=== PATIENT | female | born 1985 | race Caucasian/White ===

== ENCOUNTER 2021-05-25 15:06 | Outpatient (CLI) | payer OTHER, SELFPAY ==
--- NOTE | ~2021-05-25 | US_ITS ---
EXAMINATION: US OB ADD MULTI GESTATION DATE: 09/16/16 13:35:00 INDICATION: Spotting complicating first trimester . TECHNIQUE: Real-time pelvic ultrasound utilizing both a transvaginal and transabdominal probe was pe rformed. The interpreting radiologist was not present for the study. COMPARISON: None. FINDINGS: The uterus measures 13.5 x 10.8 x 6.6 cm. There are 2 separate intrauterine gestational sacs separate d by a thin, nearly indiscernible membrane consistent with a monochorionic, diamniotic . A living fetus is identified in each gestational sac. The crown rump length for fetus A in the sac positioned on maternal right measures 5.4 cm, which karri elates with an estimated gestational age of 12 weeks and 0 days. heart motion is identified victoriano suring 150 beats per minute (bpm) by M-mode Doppler. The crown rump length for fetus A in the sac positioned on maternal left measures 5.5 cm, which corre lates with an estimated gestational age of 12 weeks and 0 days. heart motion is identified beth uring 167 beats per minute (bpm) by M-mode Doppler. The right ovary measures 3.2 x 2.2 x 1.6 cm. The left ovary measures 2.7 x 2.1 x 1.5 cm. Vascular rissa w identified in both ovaries on color Doppler. There is no free fluid in the pelvis. IMPRESSION: 1. Monochorionic, diamnionic with 2 living fetuses. 2. Gestational age by ultrasound of 12 weeks 0 day(s) +/- 1 week and 1 day with ultrasound estimated date of delivery (ELIEL) of 12/07/2021. Reviewed, dictated and finalized at location H. IFIED NOVELL ADMINISTRATOR IMPRESSION: 1. Monochorionic, diamnionic with 2 living fetuses. 2. Gestational age by ultrasound of 12 weeks 0 day(s) +/- 1 week and 1 day wit h ultrasound estimated date of delivery (ELIEL) of 12/07/2021.
== END 2021-05-25 15:07 | disposition home or self-care (01) ==
LOC: ANHIMG 15:12
PROVIDERS: PCP Nurse Practitioner Family; Visit Provider Obstetrics & Gynecology
DX: O30.001 Twin pregnancy, unspecified number of placenta and unspecified number of amniotic sacs, first trimester (principal); Z3A.12 12 weeks gestation of pregnancy
CPT/HCPCS: 76801

== ENCOUNTER 2021-11-05 07:11 | Outpatient (RCR) | payer OTHER, SELFPAY ==
[2021-10-21 11:14] VITALS: BP 124/68; PULSE 62
[2021-10-25 18:03] VITALS: BP 110/62; PULSE 86
[2021-10-28 14:02] VITALS: BP 122/61; PULSE 84
[2021-11-02 11:07] VITALS: BP 122/61; PULSE 83
[2021-11-05 07:51] VITALS: BP 119/69; PULSE 72
== END 2021-11-12 10:21 | disposition home or self-care (01) ==
LOC: ANHOBOP 07:11
PROVIDERS: PCP Nurse Practitioner Family; Visit Provider Obstetrics & Gynecology Gynecology
DX: O24.419 Gestational diabetes mellitus in pregnancy, unspecified control (principal); O30.009 Twin pregnancy, unspecified number of placenta and unspecified number of amniotic sacs, unspecified trimester; Z3A.33 33 weeks gestation of pregnancy; Z3A.34 34 weeks gestation of pregnancy; Z3A.35 35 weeks gestation of pregnancy
CPT/HCPCS: 59025

== ENCOUNTER 2021-11-07 14:45 | Inpatient (IN) | payer OTHER, SELFPAY ==
[2021-11-07] VITALS (28 sets, daily range): BP systolic 78–133; BP diastolic 39–96; PULSE 52–105; RESP 14–18; TEMP 36.2–37.1; O2SAT 91–100; BMI 46.0
--- NOTE | 2021-11-07 16:01 | WPDOBADMIT ---
Obstetrics - Admit Note Admission Note: record reviewed. No pertinent additions to the history and/or any subsequent changes in the physical findings that are not consistent with the expected course of the were found. 36yo @ 35.4wks (ELIEL 12/08/21) w/ di-di twins who presented w/ SROM of twin A @ 1330 and presented at 9cm. - A2GDM on insulin Additions to the history and/or subsequent changes in the physical findings follow. None.
--- NOTE | 2021-11-07 16:11 | PM.OBPRVD ---
OB - Delivery Note Procedure Delivery date: 11/07/21 Events: Gestational Diabetes and Other ( labor; Di-Di Twins) Delivery monitor: External FHT and External Uterine Route of delivery: Laceration Description: None Specimen: Yes (placenta) Quantitative Blood Loss (ml): 150 Anesthesia type: None Disposition: Floor Baby Date of : 11/07/21 Time of : 15:24 Weeks of gestation at delivery: 35 (.4) gender: Male Weight (pounds): 5 Weight (ounces): 14 presentation: vertex position: Right Occiput Anterior Placenta delivery description: Expressed Cord Vessel Description: 3 Vessels score one minute: 9 score five minutes: 9 Twins 2: Date of : 11/07/21 Time of : 15:44 Weeks of gestation at delivery: 35 (.4) gender: Female Weight (pounds): 6 Weight (ounces): 2 presentation: compound (left arm presenting above head) position: Right Occiput Anterior Placental delivery description: Expressed Cord Vessel Description: 3 Vessels score one minute: 8 score five minutes: 9 Narrative: Wallace presented to labor delivery with rupture of membranes at 1:30 p.m.. She presented delilah and in significant pain. She was found to be 9 cm dilated. She was taken to the operating room for double setup and aware of the possibility of need for stat if anything were to happen with baby B. She pushed twice and delivered twin A, male, without any complications. He had spontaneous cry and the umbilical cord was clamped and cut. He was handed off to the awaiting pediatric team in stable condition. Ultrasound was performed and confirmed that twin B remained in the cephalic presentation. We awaited until spontaneous contractions resumed and she began pushing. We intermittently performed bedside ultrasound to confirm twin B remained cephalic. Once the head was lower, amniotomy was performed with clear fluid noted. The hand was then palpated above the head, however heart tones remained normal. We proceeded to have her push approximately 3 more contractions and she easily delivered the 's head and body without complications, female. The umbilical cord was clamped and cut and she was handed off to the awaiting pediatric team where spontaneous cry was heard. Pitocin infusion was then started, and with gentle downward traction on the cord, placenta B delivered 1st followed by placenta A. Uterine tone was noted to be firm with minimal bleeding. Segments of the cord for cord gases and typing were then collected for each baby. Sponge, lap, instrument, and needle counts were correct at the end the procedure. Mom and babies remained in a stable condition and mom was taken to a labor suite, the baby's were taken to the NICU. [facility] Delivery Billing Delivery Delivery: Delivery Charge
[2021-11-07 16:20] LABS: Basophils Absolute Auto 0.1 K/mm3 (0.0-0.1); Basophils Percent Auto 0.4 % (0.2-1.2); Eosinophils Absolute Auto 0.1 K/mm3 (0-0.3); Eosinophils Percent Auto 0.4 % (0-4.4); Hematocrit 36.6 % (37.0-47.0); Hemoglobin 11.7 g/dL (12.0-15.0); Immature Granulocyte Absolute 0.38 K/mm3 (0.00-0.031); Immature Granulocyte Percent A 3.2 % (0-0.5); Lymphocytes Absolute Auto 2.24 K/mm3 (0.9-3.2); Mean Corpuscular Hemoglobin 27.5 pg (26-34); Mean Corpuscular Volume 86.1 fl (80-100); Mean Platelet Volume 10.7 fl (7.4-10.4); Monocytes Absolute Auto 0.8 K/mm3 (0.1-0.6); Monocytes Percent Auto 6.9 % (2.6-8.5); Neutrophils Absolute Auto 8.2 K/mm3 (1.3-6.7); Neutrophils Percent Auto 70.1 % (45.5-73.1); Platelet Count Result 229 k/mm3 (150-375); Red Blood Count 4.25 M/mm3 (4.2-5.4); Red Cell Distribution Width 15.1 % (11.5-14.5); White Blood Count 11.8 K/mm3 (4.5-10.0)
[2021-11-07] MEDS: OXYTOCIN 30 UNITS/NS 500 ML 30 UNITS/500 ML BAG 125 UNITS IV CONT ×2 (16:43→17:58)
[2021-11-07] MEDS: LACTATED RINGERS 1,000 ML 125 ML IV CONT ×2 (16:44→18:01)
--- NOTE | 2021-11-07 16:58 | LDADM ---
This patient, Wallace Borja, was admitted to Labor/Delivery/Recovery 102 on 11/07/21 at 14:45. Plans for labor, pain management and were discussed with patient. Patient/family oriented to hospital policies and general routines including ID bracelet, bed and alarms, visiting hours, pain management, procedures, bathroom and other care routines, personal items, smoking policy, room service/diet and guest tray routines, security routines, and visiting hours. Patient/Family are encouraged to report perceived risks to care and to ask questions if they do not understand what they are told or what they should do. See OBIX for further documentation.
[2021-11-07] MEDS: IBUPROFEN 600 MG TABLET PO (17:12)
[2021-11-07] MEDS: miSOPROStol 200 MCG TABLET 800 MCG RECTAL (17:20)
[2021-11-07] MEDS: fentaNYL CITRATE INJ (*CRX) 100 MCG/2 ML VIAL IV PUSH (17:22)
[2021-11-07] MEDS: METHYLERGONOVINE MALEATE 0.2 MG/ML VIAL IM ×2 (17:28→19:51)
--- NOTE | 2021-11-07 17:40 | WPDHPUPDATE1 ---
History and Physical Update Update Date/Time: 11/07/21 17:40 History and Physical has been reviewed, including an updated exam of the patient. There are NO changes in the patient's condition. Risks, benefits, and alternatives have been discussed and questions answered. Patient agrees to proceed with suction D&C due to PPH of 2062cc; labs pending.
[2021-11-07 17:48] LABS: Basophils Absolute Auto 0.1 K/mm3 (0.0-0.1); Basophils Percent Auto 0.5 % (0.2-1.2); Eosinophils Percent Auto 0.2 % (0-4.4); Hematocrit 34.6 % (37.0-47.0); Immature Granulocyte Absolute 0.35 K/mm3 (0.00-0.031); Lymphocytes Absolute Auto 1.51 K/mm3 (0.9-3.2); Lymphocytes Percent Auto 8.8 % (18.3-44.2); Mean Corpuscular HGB Conc 31.8 g/dl (32-36); Mean Corpuscular Hemoglobin 27.7 pg (26-34); Mean Corpuscular Volume 87.2 fl (80-100); Mean Platelet Volume 10.7 fl (7.4-10.4); Monocytes Absolute Auto 0.9 K/mm3 (0.1-0.6); Monocytes Percent Auto 5.4 % (2.6-8.5); Neutrophils Absolute Auto 14.3 K/mm3 (1.3-6.7); Neutrophils Percent Auto 83.1 % (45.5-73.1); Platelet Count Result 208 k/mm3 (150-375); Red Blood Count 3.97 M/mm3 (4.2-5.4); Red Cell Distribution Width 14.9 % (11.5-14.5); White Blood Count 17.2 K/mm3 (4.5-10.0)
--- NOTE | 2021-11-07 17:49 | WPDANESEPP ---
Anes - Eval Pre Procedure Procedure: suction d & c Date/Time: 11/07/21 17:49 Surgeon: Emmanuelle Burch MD Preop Diagnosis: retained placenta Pre Op Diagnosis: LABOR Patient Data Age: 36 Gender: F Height: 1.69 m Weight: 131.5 kg Last Vital Signs Pulse 66 11/07/21 17:46 BP 113/74 11/07/21 17:46 Pulse Ox 100 11/07/21 17:44 O2 Del Method Room Air 11/07/21 16:53 Allergies Allergy/AdvReac Type Severity Reaction Status Date / Time No Known Allergies Allergy Unverified 01/16/19 05:25 Home Medications Medication Instructions Recorded Confirmed Type aspirin 81 mg capsule 81 mg PO DAILY 10/28/21 11/07/21 History calcium carbonate 333 mg-magnesium 3 tablet PO TID 10/28/21 11/07/21 History oxide 133 mg-zinc sulf 5 mg tablet ergocalciferol (vitamin D2) 1,250 50,000 unit PO 2XW 10/28/21 11/07/21 History mcg (50,000 unit) capsule (Vitamin D2) ferrous sulfate 325 mg (65 mg 325 mg PO BID 10/28/21 11/07/21 History iron) tablet vit no.95-ferrous 1 tablet PO DAILY 10/28/21 11/07/21 History fumarate 28 mg-folic acid 800 mcg tablet () Laboratory Tests 11/07/21 11/07/21 11/07/21 16:12 16:12 16:12 WBC 11.8 K/mm3 H K/mm3 (4.5-10.0) RBC 4.25 M/mm3 M/mm3 (4.2-5.4) Hgb 11.7 g/dL L g/dL (12.0-15.0) Hct 36.6 % L % (37.0-47.0) MCV 86.1 fl fl (80-100) MCH 27.5 pg pg (26-34) MCHC 32.0 g/dl g/dl (32-36) RDW 15.1 % H % (11.5-14.5) Plt Count 229 k/mm3 k/mm3 (150-375) MPV 10.7 fl H fl (7.4-10.4) Immature Gran % (Auto) 3.2 % H % (0-0.5) Neut % (Auto) 70.1 % % (45.5-73.1) Lymph % (Auto) 19.0 % % (18.3-44.2) [place] % (Auto) 6.9 % % (2.6-8.5) Eos % (Auto) 0.4 % % (0-4.4) Baso % (Auto) 0.4 % % (0.2-1.2) Lymph # (Auto) 2.24 K/mm3 K/mm3 (0.9-3.2) [place] # (Auto) 0.8 K/mm3 H K/mm3 (0.1-0.6) Eos # (Auto) 0.1 K/mm3 K/mm3 (0-0.3) Baso # (Auto) 0.1 K/mm3 K/mm3 (0.0-0.1) Abs Immat Gran (auto) 0.38 K/mm3 H K/mm3 (0.00-0.031) Absolute Neuts (auto) 8.2 K/mm3 H K/mm3 (1.3-6.7) Absolute Nucleated RBC 0.0 K/mm3 K/mm3 (0.0-0.012) Nucleated RBC % 0.0 % % (0.0-0.2) PT INR APTT Fibrinogen D-Dimer RPR Pending Blood Type AB Positive Antibody Screen Negative 11/07/21 11/07/21 17:42 17:42 WBC Pending RBC Pending Hgb Pending Hct Pending MCV Pending MCH Pending MCHC Pending RDW Pending Plt Count Pending MPV Pending Immature Gran % (Auto) Pending Neut % (Auto) Pending Lymph % (Auto) Pending [place] % (Auto) Pending Eos % (Auto) Pending Baso % (Auto) Pending Lymph # (Auto) Pending [place] # (Auto) Pending Eos # (Auto) Pending Baso # (Auto) Pending Abs Immat Gran (auto) Pending Absolute Neuts (auto) Pending Absolute Nucleated RBC Pending Nucleated RBC % Pending PT Pending INR Pending APTT Pending Fibrinogen Pending D-Dimer Pending RPR Blood Type Antibody Screen Patient hx anesthesia problems: none Family hx anesthesia problems: none Results Review: All pre-operative results and documents have been reviewed as part of the pre-operative evaluation. [facility] Past Medical History Medical History (Updated 11/07/21 @ 17:51 by Siria Awad CRNA) Morbid obesity with BMI of 45.0-49.9, adult Social History Social History Smoking status: Never smoker Second hand tobacco smoke exposure: No Substance use: never Spiritual care c
[2021-11-07] MEDS: CARBOPROST TROMETHAMINE 250 MCG/ML AMPUL IM (18:04)
[2021-11-07] MEDS: ceFAZolin SODIUM 1 GM VIAL 2 GM IV PUSH (18:18)
--- NOTE | 2021-11-07 18:26 | P.PNAN_ITS ---
Anes - Eval Final PreProcedure Day of Procedure 11/07/21 18:26 Patient weight: morbidly obese Heart: regular rate and rhythm Lungs: clear to auscultation Airway: Mallampati scale class II Neurological: alert and oriented Emergent: yes Anesthetic plan: proceed Anesthesia type and monitoring: general (possible GA with ETT) GIVS and standard monitoring Results Review: All pre-operative results and documents have been reviewed as part of the pre- operative evaluation. Informed Consent: The patient's anesthetic plan and its attendant risks and benefits were discussed with the patient/family/POA. Questions were solicited and answers provided to the satisfaction of the patient/family/POA.
[2021-11-07 18:27] LABS: INR 1.1; Prothrombin Time 13.6 Seconds (11.1-14.7)
[2021-11-07 18:28] LABS: Fibrinogen 471 mg/dl (215-510); Partial Thromboplastin Time 26.2 SECONDS (22.3-36.8)
[2021-11-07 18:31] LABS: D Dimer 2.65 ug/mL (<0.48)
[2021-11-07] MEDS: LACTATED RINGERS 1,000 ML 30 ML IV CONT ×2 (19:12)
--- NOTE | 2021-11-07 19:16 | PM.OP ---
Procedure Note - Brief Procedure Note - Brief Date of procedure: 11/07/21 Pre-op diagnosis: hemorrhage Post-op diagnosis: Other (Same + retained fragment of placenta) Procedure performed: Suction dilation and curettage Description of procedure: Cornell was s/p of di-di twins at 1524 and 1544 with minimal bleeding. At 1717 I received a phone call that there was excessive bleeding; EBL at that point was 1600cc. Misoprostol 800mcg was instructed to be placed rectally and to drain her bladder (150cc was drained). Labs were collected and sent. She was also given Fentanyl 100mcg. I arrived to examine the patient and uterine atony was noted and 2 large clots were removed (size of softballs). Anesthesia was notified of the PPH. We then gave Methergine. She continued to bleed if fundal massage stopped. I then proceeded to have the OR team called in for suction D&C. We continued to give Hemabate and TXA and continued fundal massage until she was ready for the OR. EBL was approximately 2,200cc at this point. She was taken to the operating room where she was given sedation. She was then prepped and draped in the usual sterile fashion in the dorsal lithotomy position with her legs in low Kendrick stirrups. A time-out was performed and we did administer 2 g Ancef. A bivalve speculum was placed in the vagina where a large amount of clots were noted and removed. The anterior lip of the cervix was grasped with a ring forceps and an 8 suction curettage was placed at the fundus and suction was applied. Some clots and possible retained products were removed. Two more swipes were performed with only blood clots removed. The cervix continued to remain open. I decided to proceed with using a size 10 suction curettage. A couple passes were made and more clots were removed. I performed a bimanual massage where a small fragment of what appeared to be a piece of placenta was removed from the posterior wall. Ultrasound was performed and an area on the posterior wall appeared to look like there was still possibly a retained fragment. Another bimanual massage with uterine sweep was performed and an additional piece of possible placenta was removed. A sharp curettage was performed with good uterine cry. The lining appeared thin on bedside US and the bleeding was minimal. She was given an additional dose of Hemabate at 1854. She was noted to have a small eliana-ureteral laceration that had slight bleeding (after multiple vaginal exams/vaginal prep) so a U stitch using 3-0 Vicryl was placed and hemostasis was noted. Her uterus continued to remain firm and minimal vaginal bleeding was noted. Sponge, lap, instrument, and needle counts were correct at the end of the procedure. She was awoke from anesthesia and taken to recovery in a stable condition. She will get another dose of Methergine as it has been 2 hours and we will continue Pitocin at 125ml per hour and will remain on L&D overnight. She will have labs sent at 2100 and UOP will also be closely monitored. Anesthesia: MAC Surgeon: Emmanuelle Burch MD Estimated blood loss (mL): 300 (for procedure) Urine output (mL): 100 Drains: No Packing: No Pathology: Yes Complications: No immediate complications Condition: Stable Disposition: Floor (L&D) Findings: EBL prior to start of procedure was ~2200cc; uterus ~20wk size to umbilicus but atony noted when fundal massage stopped, cervix dilated; multiple clots evacuated; small piece of possible placenta removed from posterior/fundal wall; small eliana-uretheral laceration noted and U stitch placed with 3-0 Vicryl; good hemostasis and end of case and uterus firm.
[2021-11-07] MEDS: BENZOCAINE 20% AER SPR (*SP) 56 GM CAN 1 SPRAY TOPICAL (21:00)
[2021-11-07] MEDS: LANOLIN (LANSINOH) 7.5 GM CREAM 1 APPLIC TOPICAL (21:00)
[2021-11-07] MEDS: WITCH HAZEL 40 PADS 1 PAD TOPICAL (21:00)
[2021-11-07 21:37] LABS: Hematocrit 33.7 % (37.0-47.0); Hemoglobin 10.7 g/dL (12.0-15.0); Mean Corpuscular HGB Conc 31.8 g/dl (32-36); Mean Corpuscular Hemoglobin 27.4 pg (26-34); Mean Corpuscular Volume 86.2 fl (80-100); Platelet Count Result 169 k/mm3 (150-375); Red Blood Count 3.91 M/mm3 (4.2-5.4); Red Cell Distribution Width 14.8 % (11.5-14.5); White Blood Count 17.6 K/mm3 (4.5-10.0)
[2021-11-07] MEDS: LOPERAMIDE HCL 2 MG CAPSULE 4 MG PO (22:29)
[2021-11-08] VITALS (11 sets, daily range): BP systolic 105–136; BP diastolic 49–64; PULSE 62–86; RESP 16–18; TEMP 36.3–37.2; O2SAT 97–98
[2021-11-08] MEDS: IBUPROFEN 600 MG TABLET PO ×2 (05:19→12:07)
[2021-11-08 05:31] LABS: Hematocrit 28.2 % (37.0-47.0); Hemoglobin 9.4 g/dL (12.0-15.0)
--- NOTE | 2021-11-08 09:37 | P.PNOB_ITS ---
OB - PN: Subj Subjective Date/time seen: 11/08/21 09:37 Patient comments: no complaints and pain well controlled baby status: doing well OB - PN: Obj Data Labs CBC & Chem 7: 11/08/21 05:24 Labs: Laboratory Results - last 24 hr 11/07/21 11/07/21 11/07/21 16:12 16:12 17:42 WBC 11.8 H 17.2 H RBC 4.25 3.97 L Hgb 11.7 L 11.0 L Hct 36.6 L 34.6 L MCV 86.1 87.2 MCH 27.5 27.7 MCHC 32.0 31.8 L RDW 15.1 H 14.9 H Plt Count 229 208 MPV 10.7 H 10.7 H Immature Gran % (Auto) 3.2 H 2.0 H Neut % (Auto) 70.1 83.1 H Lymph % (Auto) 19.0 8.8 L [place] % (Auto) 6.9 5.4 Eos % (Auto) 0.4 0.2 Baso % (Auto) 0.4 0.5 Lymph # (Auto) 2.24 1.51 [place] # (Auto) 0.8 H 0.9 H Eos # (Auto) 0.1 0.0 Baso # (Auto) 0.1 0.1 Abs Immat Gran (auto) 0.38 H 0.35 H Absolute Neuts (auto) 8.2 H 14.3 H Absolute Nucleated RBC 0.0 0.0 Nucleated RBC % 0.0 0.0 PT INR APTT Fibrinogen D-Dimer Blood Type AB Positive Antibody Screen Negative 11/07/21 11/07/21 11/08/21 18:10 21:31 05:24 WBC 17.6 H RBC 3.91 L Hgb 10.7 L 9.4 L Hct 33.7 L 28.2 L MCV 86.2 MCH 27.4 MCHC 31.8 L RDW 14.8 H Plt Count 169 MPV 10.0 Immature Gran % (Auto) Neut % (Auto) Lymph % (Auto) [place] % (Auto) Eos % (Auto) Baso % (Auto) Lymph # (Auto) [place] # (Auto) Eos # (Auto) Baso # (Auto) Abs Immat Gran (auto) Absolute Neuts (auto) Absolute Nucleated RBC Nucleated RBC % PT 13.6 INR 1.1 APTT 26.2 Fibrinogen 471 D-Dimer 2.65 H Blood Type Antibody Screen OB - PN A/P Plan day: 1 Plan: routine care and other (No symptoms from hemorrhage. Plan iron.) Time Spent With Patient Time: Total time spent is greater than 50% in coordination of care (as documented) at patient's floor/unit and/or counseling patient: Exam : Bimanual exam- vagina & uterus: other (Uterus firm, nt @U)
--- NOTE | 2021-11-08 09:38 | PM.OBDSVD ---
DS: Admitting Diagnosis Discharge Date 11/09/21 Admitting Diagnosis di-di twins in labor with SROM 35 4/7 wks GDMA2 DS: Discharge Diagnosis Discharge Diagnosis (1) Twin delivered vaginally: Code(s): O30.009 - Twin , unspecified number of placenta and unspecified number of amniotic sacs, unspecified trimester Status: Acute OB - DS: Summary OB Procedures : NST and Ultrasound OB Procedures Intrapartum: Spontaneous Vag Delivery (x 2 twins) OB Procedures: : Curettage (per Dr. Burch) Peripartum Data Delivery Method: Natural Vaginal Procedures: Procedures Operation Date: 11/07/21 18:30 Actual Procedure Side Surgeon p Suction Dilatation and Curettage Not Applicable Emmanuelle Burch MD complications: uterine atony and retained placenta Status at Discharge Functional status at discharge: independent ambulation Overall status at discharge: patient is progressing back to baseline Time Spent with Patient Time attestation: Total time spent providing and/or coordinating discharge services: DS: Data Data Completed and Pending Pending studies at discharge: Pending at discharge 11/07/21 15:50 Surgical [PTH] Routine Surgical [PTH] Routine Labs on day of discharge: Labs from last 24 hours 11/08/21 11/07/21 11/07/21 05:24 21:31 18:10 WBC 17.6 H RBC 3.91 L Hgb 9.4 L 10.7 L Hct 28.2 L 33.7 L MCV 86.2 MCH 27.4 MCHC 31.8 L RDW 14.8 H Plt Count 169 MPV 10.0 Immature Gran % (Auto) Neut % (Auto) Lymph % (Auto) [place] % (Auto) Eos % (Auto) Baso % (Auto) Lymph # (Auto) [place] # (Auto) Eos # (Auto) Baso # (Auto) Abs Immat Gran (auto) Absolute Neuts (auto) Absolute Nucleated RBC Nucleated RBC % PT 13.6 INR 1.1 APTT 26.2 Fibrinogen 471 D-Dimer 2.65 H RPR Blood Type Antibody Screen 11/07/21 11/07/21 11/07/21 17:42 16:12 16:12 WBC 17.2 H RBC 3.97 L Hgb 11.0 L Hct 34.6 L MCV 87.2 MCH 27.7 MCHC 31.8 L RDW 14.9 H Plt Count 208 MPV 10.7 H Immature Gran % (Auto) 2.0 H Neut % (Auto) 83.1 H Lymph % (Auto) 8.8 L [place] % (Auto) 5.4 Eos % (Auto) 0.2 Baso % (Auto) 0.5 Lymph # (Auto) 1.51 [place] # (Auto) 0.9 H Eos # (Auto) 0.0 Baso # (Auto) 0.1 Abs Immat Gran (auto) 0.35 H Absolute Neuts (auto) 14.3 H Absolute Nucleated RBC 0.0 Nucleated RBC % 0.0 PT INR APTT Fibrinogen D-Dimer RPR Pending Blood Type AB Positive Antibody Screen Negative 11/07/21 16:12 WBC 11.8 H RBC 4.25 Hgb 11.7 L Hct 36.6 L MCV 86.1 MCH 27.5 MCHC 32.0 RDW 15.1 H Plt Count 229 MPV 10.7 H Immature Gran % (Auto) 3.2 H Neut % (Auto) 70.1 Lymph % (Auto) 19.0 [place] % (Auto) 6.9 Eos % (Auto) 0.4 Baso % (Auto) 0.4 Lymph # (Auto) 2.24 [place] # (Auto) 0.8 H Eos # (Auto) 0.1 Baso # (Auto) 0.1 Abs Immat Gran (auto) 0.38 H Absolute Neuts (auto) 8.2 H Absolute Nucleated RBC 0.0 Nucleated RBC % 0.0 PT INR APTT Fibrinogen D-Dimer RPR Blood Type Antibody Screen Discharge Plan Discharge Attending physician on discharge: Kalyn Holloway Discharging Clinician: Kalyn Holloway Anticipated Discharge Date/Time: 11/09/21 09:40 Patient Disposition: Home, Self-Care Activity: may shower and pelvic rest Diet: regular Patient Instructions: Antibiotic Form Stand Alone Forms: General Discharge Information Follow-up/Referrals: Kalyn Holloway MD [Physician] - 6 Weeks Discharge Medications: Continued ferrous sulfate 325 mg (65 mg iron) Tablet 325 mg PO BID ergocalciferol (vitamin D2) [Vitamin D2] 1,250 mcg (50,000 unit) Capsule 50,000 unit PO 2XW Rx Instructions: Takes every Monday and Wednesday PNV cmb#95-ferrous fumarate-FA [] 28 mg iron- 800 mcg Tablet 1 tablet PO DAILY
[2021-11-08 10:35] LABS: Rapid Plasma Reagin Non-Reactive (NonReactive)
[2021-11-08] MEDS: DOCUSATE SODIUM 100 MG CAPSULE PO ×2 (12:00→20:29)
[2021-11-08] MEDS: POLYSACCHARIDE IRON COMPLEX 150 MG CAPSULE PO ×3 (12:00→20:29)
[2021-11-08] MEDS: MULTIVIT/MIN/PREN/FOL AC/IRON TABLET 1 TAB PO (12:07)
--- NOTE | 2021-11-08 13:34 | WPDANLDPN2 ---
Anes-Prog Note L&D Date/Time: 11/08/21 13:34 Comfortable throughout: labor and delivery Neuro status: Neuro function grossly intact. Cardiovascular status: normal Respiratory status: normal Airway patency: baseline Mental status: baseline Vital Signs: Last Vital Signs Temp 98.8 F 11/08/21 11:30 Pulse 77 11/08/21 11:30 Resp 16 11/08/21 11:30 BP 126/52 L 11/08/21 11:30 Pulse Ox 98 11/08/21 11:30 O2 Del Method Room Air 11/08/21 09:00 O2 Flow Rate 8 11/07/21 19:25 Pain score (VAS): 1 I/O: Intake & Output 11/07/21 11/08/21 11/08/21 23:59 07:59 15:59 Intake Total 1500 240 Output Total 2478 Balance -978 240 Patient feedback: Patient satisfied with anesthetic care.
--- NOTE | 2021-11-08 13:37 | WPDANESPN ---
Anes - Prog Note Post-Op Date/Time: 11/08/21 13:37 Cardiovascular status: normal Respiratory status: normal Airway patency: baseline Mental status: baseline Post-Op hydration status: normal Vital Signs: Last Vital Signs Temp 98.8 F 11/08/21 11:30 Pulse 77 11/08/21 11:30 Resp 16 11/08/21 11:30 BP 126/52 L 11/08/21 11:30 Pulse Ox 98 11/08/21 11:30 O2 Del Method Room Air 11/08/21 09:00 O2 Flow Rate 8 11/07/21 19:25 Pain Score (VAS): 0 I/O: Intake & Output 11/07/21 11/08/21 11/08/21 23:59 07:59 15:59 Intake Total 1500 240 Output Total 2478 Balance -978 240 Laboratory Tests 11/08/21 05:24 11/07/21 11/07/21 11/07/21 16:12 16:12 16:12 WBC 11.8 H RBC 4.25 Hgb 11.7 L Hct 36.6 L MCV 86.1 MCH 27.5 MCHC 32.0 RDW 15.1 H Plt Count 229 MPV 10.7 H Immature Gran % (Auto) 3.2 H Neut % (Auto) 70.1 Lymph % (Auto) 19.0 [place] % (Auto) 6.9 Eos % (Auto) 0.4 Baso % (Auto) 0.4 Lymph # (Auto) 2.24 [place] # (Auto) 0.8 H Eos # (Auto) 0.1 Baso # (Auto) 0.1 Abs Immat Gran (auto) 0.38 H Absolute Neuts (auto) 8.2 H Absolute Nucleated RBC 0.0 Nucleated RBC % 0.0 PT INR APTT Fibrinogen D-Dimer RPR Non-reactive Blood Type AB Positive Antibody Screen Negative 11/07/21 11/07/21 11/07/21 17:42 18:10 21:31 WBC 17.2 H 17.6 H RBC 3.97 L 3.91 L Hgb 11.0 L 10.7 L Hct 34.6 L 33.7 L MCV 87.2 86.2 MCH 27.7 27.4 MCHC 31.8 L 31.8 L RDW 14.9 H 14.8 H Plt Count 208 169 MPV 10.7 H 10.0 Immature Gran % (Auto) 2.0 H Neut % (Auto) 83.1 H Lymph % (Auto) 8.8 L [place] % (Auto) 5.4 Eos % (Auto) 0.2 Baso % (Auto) 0.5 Lymph # (Auto) 1.51 [place] # (Auto) 0.9 H Eos # (Auto) 0.0 Baso # (Auto) 0.1 Abs Immat Gran (auto) 0.35 H Absolute Neuts (auto) 14.3 H Absolute Nucleated RBC 0.0 Nucleated RBC % 0.0 PT 13.6 INR 1.1 APTT 26.2 Fibrinogen 471 D-Dimer 2.65 H RPR Blood Type Antibody Screen 11/08/21 05:24 WBC RBC Hgb 9.4 L Hct 28.2 L MCV MCH MCHC RDW Plt Count MPV Immature Gran % (Auto) Neut % (Auto) Lymph % (Auto) [place] % (Auto) Eos % (Auto) Baso % (Auto) Lymph # (Auto) [place] # (Auto) Eos # (Auto) Baso # (Auto) Abs Immat Gran (auto) Absolute Neuts (auto) Absolute Nucleated RBC Nucleated RBC % PT INR APTT Fibrinogen D-Dimer RPR Blood Type Antibody Screen Patient Feedback: Patient satisfied with anesthetic care.
[2021-11-09 08:15] VITALS: BP 113/64; PULSE 73; RESP 18; TEMP 36.9
--- NOTE | 2021-11-09 08:27 | PM.OBPNVD ---
OB - PN: Subj Subjective Date/time seen: 11/09/21 08:27 Patient comments: no complaints and pain well controlled baby status: doing well OB - PN: Obj Data Labs CBC & Chem 7: 11/08/21 05:24 Labs: Laboratory Results - last 24 hr 11/07/21 16:12 RPR Non-reactive OB - PN A/P Plan day: 2 Plan: routine care, discharge home, follow up 6 weeks and other (linda rust) Time Spent With Patient Time: Total time spent is greater than 50% in coordination of care (as documented) at patient's floor/unit and/or counseling patient: Exam : Bimanual exam- vagina & uterus: other (Uterus firm, nt @U)
[2021-11-09] MEDS: MULTIVIT/MIN/PREN/FOL AC/IRON TABLET 1 TAB PO (10:05)
[2021-11-09] MEDS: DOCUSATE SODIUM 100 MG CAPSULE PO (10:05)
[2021-11-09] MEDS: POLYSACCHARIDE IRON COMPLEX 150 MG CAPSULE PO (10:06)
[2021-11-10 10:15] VITALS: BP 120/70; PULSE 63; RESP 18; TEMP 36.7; O2SAT 100
--- NOTE | 2021-11-15 16:11 | PC.NURSE ---
[phone] Mother led the conversation with her experience and plan to feed her infants so far and her ability to independently latch infant optimally without discomfort/ continue with the plan of attempting to breastfeed/pump/supplement with human milk with fortifier to feed infants. Reminded parents to use good handwashing technique to prevent infection. Mother is feeding appropriately for growth of and understands stimulating to eat if needed. has had appropriate/adequate feedings in the last 24 hours meets the outcomes for weight, output and jaundice at this time. Mother states she is confident to continue attempting to breastfeed/pump/supplement with fortifier until the president ergonomic consulting visit tomorrow and feed infants at home, when to call for assistance and denies any additional assistance or education at this time. Reinforced understanding of milk production, transition of milk, signs of adequate intake, prevention/relief of engorgement, responsive after visualizing feeding cues, the different methods of stimulating to breastfeed 2-3 hours after the start of the last feeding, community resources, medication information reviewed per [employer] and when to call a provider using the resource of the mom and baby guide/[facility] website. Mother voiced understanding of the education shared. Reported to the primary RN. [phone] Consulted with patient to assess needs related to . Reviewed working with infant baby boy to latch optimally to the right breast with cross cradle positioning. Reviewed protecting the breast, nipples and with an optimal deep latch, good positioning, and good hand washing. Reviewed positioning and alignment, supporting breast, off-centered (asymmetrical latch) and leading with the chin with big open wide gape. Mother does mention she has breastfed her 3 year old in the past and works well with her infants. Education given to mother of how to visualize suck/swallow ratios and drinking at the breast. was able to maintain latch without discomfort to mother. Nipple care reviewed with optimal latch and good positioning, comfort, healing with warm, wet washcloth to rinse breast, then leave open to air-dry, colostrum may be left on nipples to dry but have clean hands when touching the nipple/breast as needed. Mother attempted to optimally latch girl with no success at this time. There were some good efforts on and off for about 15 min, then mother bottle fed human milk with fortifier. RN assisted with bottle feeding boy 35 mls with fortifier. Infants have had appropriate feedings in the last 24 hours meets the outcomes for weight, output and jaundice at this time. Mother states she is confident to continue feeding plan for attempting to breastfeed, then if no latch supplementing with pumped human milk with fortifier, then pumping for future feeding her infants at home, when to call for assistance and denies any additional assistance or education at this time. Reinforced understanding of milk production, transition of milk, signs of adequate intake, prevention/relief of engorgement, responsive after visualizing feeding cues, the different methods of stimulating infant to breastfeed 2-3 hours after the start of the last feeding, community resources, medication information reviewed per [facility] and when to call a provider using the resource of the mom and baby guide/[facility] website. Resources used to facilitate learning were used from the visual handout/mom and baby guide. Mother voiced understanding of the education shared. Reported to the primary RN.
== END 2021-11-09 14:14 | disposition home or self-care (01) | DRG 797 ==
LOC: ANHLDR 19:21 → ANHOBPP 22:12 → ANHOB2 11-08 07:28
PROVIDERS: Admitting Provider Obstetrics & Gynecology; PCP Nurse Practitioner Family; Visit Provider Obstetrics & Gynecology Gynecology
PROC: 10E0XZZ Delivery of Products of Conception, External Approach (ICD-10-PCS; principal; 2021-11-07 18:30)
DX: O60.14X1 Preterm labor third trimester with preterm delivery third trimester, fetus 1 (principal); O72.1 Other immediate postpartum hemorrhage; Z37.2 Twins, both liveborn; O72.2 Delayed and secondary postpartum hemorrhage; O60.14X2 Preterm labor third trimester with preterm delivery third trimester, fetus 2; O71.82 Other specified trauma to perineum and vulva; O32.6XX2 Maternal care for compound presentation, fetus 2; O99.214 Obesity complicating childbirth; E66.01 Morbid (severe) obesity due to excess calories; O62.3 Precipitate labor; O76 Abnormality in fetal heart rate and rhythm complicating labor and delivery; O24.424 Gestational diabetes mellitus in childbirth, insulin controlled; O30.043 Twin pregnancy, dichorionic/diamniotic, third trimester; Z3A.35 35 weeks gestation of pregnancy
CPT/HCPCS: 36415; 59025; 84112; 85014; 85018; 85025; 85027; 85380; 85384; 85610; 85730; 86592; 86850; 86900; 86901; 88305; 88307; A9270; J0690; J2210; J2250; J2590; J2704; J3010; J7120

== ENCOUNTER 2025-03-03 15:44 | Outpatient (CLI) | payer OTHER, SELFPAY ==
--- NOTE | ~2025-03-03 | XR_ITS ---
EXAMINATION: XR abdomen/kub 1V, 03/03/2025 16:00 CDT HISTORY: Kidney stone COMPARISON: No comparisons available. Technique: 3 view. Findings: Moderate fecal content, no dilated bowel loops No free air. No abnormal calcifications No acute osseous abnormality. Impression: 1. No renal calculi identified Reviewed, dictated and finalized at location P. Impression: 1. No renal calculi identified
--- NOTE | ~2025-03-03 | US_ITS ---
EXAMINATION: US retroperitoneal comp, 03/03/2025 15:49 CDT HISTORY: Kidney stone Comparison: None Technique: Junior-scale and color Doppler images were obtained. Findings: KIDNEYS: Renal cortices intact, no solid masses, cysts or calculi, no hydronephrosis. Right Kidney: Right kidney 10.9 x 5.4 x 5.8 cm. Left Kidney: Left kidney 10.7 x 4.9 x 4.2 cm. Bladder: The bladder is unremarkable. . Impression: No acute abnormality. Reviewed, dictated and finalized at location P. Impression: No acute abnormality.
== END 2025-03-03 15:45 | disposition home or self-care (01) ==
PROVIDERS: PCP Urology; Visit Provider Urology
DX: N20.0 Calculus of kidney (principal)
CPT/HCPCS: 74018; 76770

== ENCOUNTER 2025-03-07 08:53 | Outpatient (CLI) | payer OTHER, SELFPAY ==
--- NOTE | ~2025-03-07 | US_ITS ---
EXAMINATION: US pelvic complete DATE: 03/07/2025 09:38 INDICATION: Displacement of intrauterine contraceptive device. TECHNIQUE: Multiple transabdominal sonographic images of the pelvis were obtained. COMPARISON: Abdomen radiograph 03/03/2025 FINDINGS: The uterus measures 9.0 x 3.8 x 5.6 cm. There is no free fluid in the pelvis. The endometrial complex measures 4 mm in thickness. There is an intrauterine device in expected position. The right ovary measures 3.1 x 1.6 x 2.1 cm. The left ovary measures 4.6 x 2.6 x 4.0 cm. There is normal vascular flow in the ovaries. IMPRESSION: 1. Intrauterine device in expected position. Reviewed, dictated and finalized at location E.
== END 2025-03-07 08:54 | disposition home or self-care (01) ==
LOC: GOSHIMG 08:54
PROVIDERS: PCP Nurse Practitioner; Visit Provider Nurse Practitioner
DX: T83.32XA Displacement of intrauterine contraceptive device, initial encounter (principal); Y83.8 Other surgical procedures as the cause of abnormal reaction of the patient, or of later complication, without mention of misadventure at the time of the procedure
CPT/HCPCS: 76856

== ENCOUNTER 2025-03-10 14:49 | Outpatient (CLI) | payer OTHER, SELFPAY ==
--- OUTSIDE RECORDS SUMMARY | 2018-03-05 11:54 | XMS_ITS | Continuity of Care Document ---
Author Organization [facility] Address [address] [place] [address] Phone Care Team Providers Care Vegetable Specker Name Role Phone Katia Scott MD Unavailable Unavailable Allergies, Adverse Reactions, Alerts Substance Reaction Status Criticality No Known Drug Allergies Other Active No I nformation Medications Medication Instructions Dosage Effective Dates (start - stop) Status Comments TriNessa (28) 0.18 mg(7)/0.215 mg(7)/0.25 mg(7)-35 mcg tablet TAKE 1 TABLET BY MOUTH ONCE DAILY - Active Advance Directives Directive Yes / No Effective Date File Name No Information Encounters Encounter Description Practice Location Reason(s) For Visit Diagnoses Date Provider Providers Copied on Encounter [facility], [address], [place], [place], [address] , tel: [phone] Anibal No Information 8 Tyler Montalvo. [address] [place], [place], [id number], [place]. tel:[phone] [facility], [address], [place], [place], [address] , tel: [phone] Anibal No Information 7 Nirmala Garrido. [address], [place], [address]. tel:[phone] [facility], [address], [place], [place], [address] , [place] tel: [phone] Anibal No Information 7 Silvestre Radhika. [address] [place], [place], [address]. tel:[phone] [facility], [address], [place], [place], [address] , [place] tel: [phone] Anibal Encounter for preventive health examinationAllergic rhinitis, unspecifiedEncounter for contraceptive management, unspecified 6 Silvestre Radhika. [address], [place], [address]. tel:[phone] Referring Provider: Radhika Silvestre, [address] [place], [address] . tel:[phone] [facility], [address], [place], [place], [address] , tel: [phone] Anibal No Information 6 Nirmala Molinaorah. [address] [place], [place], [address]. tel:[phone] [facility], [address], [place], [place], [address] , [place] tel: [phone] Anibal Encounter for preventive health examinationEncntr for gynecologist exam (general) (routine) w/o abn findings 5 Nirmala Caih. [address], [place], [address]. tel:[phone] Referring Provider: Radhika Silvestre, [address] [place], [address] . tel:[phone] [facility], [address], [place], [address] , [place] tel: [phone] Anibal No Information 5 Nirmala Molinaorah. [address] [place], [place], [address]. tel:[phone] [facility], [address], [place], [place], [address] , [place] tel: [phone] Anibal Pre-employment examinationNEED FOR PROPHYLACTIC VACCINATION WITH COMBINED [id number] ERTUSSIS (DTP) (DTAP) VACCINE 5 Nirmala Garrido. [address], [place], [address]. tel:[phone] Referring Provider: Radhika Silvestre, [address] [place], [address] . tel:[phone] [facility], [address], [place], [place], [address] , tel: [phone] [place] Influenza VaccineRoutine Medical ExamRoutine gynecological examinationScreening for malignant neoplasm of the cervix 4 Nirmala Garrido. [address], [place], [address]. tel:[phone] Referring Provider: Radhika Silvestre, [address] [place] [address], [address] . tel:[phone] [facility], [address], [place], [place], [address] , tel: [phone] Anibal omer 3 Nirmala Garrido. [address] [place], [place], [address]. tel:[phone] Referring Provider: Radhika Silvestre, [address] [place] [address], [address] . tel:[phone] [facility], [address], [place], [place], [address] , tel: [phone] [place] Routine Medical ExamRoutine Medical ExamGynecological ExaminationScreening for malignant neoplasms of the cervix 3 Nirmala Garrido. [address], [place], [address]. tel:[phone] Referring Provider: Radhika Silvestre, [place], [address] . tel:[phone] [facility], [address], [place], [place], [address] , tel: [phone] [place] Surveillance of contraceptive pill Sep- 0-201 3 Silvestre Radhika. [address], [place], [address]. tel:[phone] [facility], [address], [place], [place], [address] , [place] tel: [phone] [place] Routine general medical examination at a health care facilityRoutine general medical examination at a health care facility 9201 2 Silvestre Radhika. [address], [place], [address]. tel:[phone] Referring Provider: Radhika Silvestre, [address] [place], [address] . tel:[phone] [facility], [address], [place], [place], [address] , [place] tel: [phone] [place] Routine general medical examination at a [facility] care facilityRoutine general medical examination at a health care facility 7[address] 1 Nirmala Molinaorah. [address] [place], [place], [address]. tel:[phone] Referring Provider: Radhika Silvestre, [place], [address] . tel:[phone] [facility], [address], [place], [place], [address] , tel: [phone] [facility] EXAM-GROUP SURVEY 2 2-201 1 Nirmala Molinaorah. [address] [place], [place], [address]. tel:[phone] [facility], [address], [place], [place], [address] , [place] tel: [phone] [place] MITRAL VALVE DISORDER Apr-0 3-201 0 Silvestre Radhika. [address] [place], [place], [address]. tel:[phone] [facility], [address], [place], [place], [address] , tel: [phone] [place] ROUTINE MEDICAL EXAM Sep- 6-200 8 Silvestre Radhika. [address] [place], [place], [address]. tel:[phone] [facility], [address], [place], [place], [address] , [place] tel: [phone] Anibal No Information 8-200 6 Nirmala Garrido. [address] [place], [place], [address]. tel:[phone] Family History Family Member Type Diagnosis Age At Onset Father Problem (finding) raised blood lipids Mother Problem (finding) Cancer Immunizations Vaccine Date Status Comments Fluzone High-Dose , high dose, preservative free administered Note: Shop [employer] Save ; Source: Source Unspecified influenza, injectable, quadrivalent, (3 years or older) administered Note: Shop [employer] Save ; Source: Source Unspecified Influenza virus vaccine, spl it virus, 3 years and older, intramuscular use (fluvirin) administered Note: [employer] Save ; Source: Source Unspecified Tdap administered Source: New Imm unization Record influenza, injectable, quadrivalent, (3 years or older) administered Source: New Immuniza tion Record 42135 - Influenza administered Source: So urce Unspecified 87710 - HPV administered Source: Source Unspecified 75487 - HPV administered Source: Source Unspecified 42872 - HPV administered Source: Source Unspecified Payers Payer name Insurance type Covered alliance party ID Authoriza tion(s) SAY [id number] [employer] [id number] 2 [employer] [id number] 2 Social History Type Description Quantity Date Captured Comments Alcohol Use Details Unknown Caffeine Use Details Unknown Tobacco Use Status No Information Smoking Status No Information Sex Female Chief Complaint And Reason For Visit No Information Reason For Referral Reason For Referral No Information History Of Present Illness Encounter Date Complaint History Of Prese nt Illness No Information Functional Status Date Functional Assessmen t No Information Instructions Date Instruction Additional Infor mation No Information Assessments Type Assessment Date No Information Patient Care Teams Name Effective Dates (start - stop) Status Members No Information
--- NOTE | ~2025-03-10 | MM_ITS ---
EXAMINATION: MM screening jose cruz BI w maribel HISTORY: Screening TECHNIQUE: Craniocaudal and mediolateral oblique 3-D tomosynthesis images were obtained and synthetic 2-D images were generated. CAD analysis was submitted and interpreted. COMPARISON: Baseline BREAST PARENCHYMAL COMPOSITION: There are scattered areas of fibroglandular density. FINDINGS: There is no evidence of suspicious mass, calcification, or architectural distortion to suggest malignancy in either breast. IMPRESSION: 1. No mammographic evidence of malignancy. 2. Recommend routine screening mammography in one year. BI-RADS Category 1: Negative Reviewed, dictated and finalized at location C.
--- OUTSIDE RECORDS SUMMARY | 2025-03-10 15:34 | XMS_ITS | Encounter Summary ---
Author Organization [facility] System Address [address] [place] [id number] Care Team Providers Care Ship Carpenter Name Role Phone Power Bonds MD Unavailable [phone] None, Provider Primary Care Provider Unavaila ble Encounter Details Date Type Department Care Team (Late st Contact Info) Description 11/14/2024 Prep for Procedure [facility] [address] [place], [place] [id number] Stewart Brantley MD [address] [facility] [address] [place], [place] [id number] Social History Tobacco Use Types Packs/Day Years Used Date Smoking Tobacco: Never Smokeless Tobacco: Never Alcohol Use Standard Drinks/Week Comments Not Currently 0 (1 standard drink = 0.6 oz pur e alcohol) occasionally PHQ-2 Answer Date Recorded PHQ-2 Score - If the patient scores above 3, please move on to questions 3-9 0 08/14/2020 Comments No Sex and Gender Information Value Date Recorded Sex Assigned at Not on file Legal Sex Female 6:38 PM CDT Gender Identity Not on file Sexual Orientation Not on file documented as of this encounter Plan of Treatment Not on file documented as of this encounter Results * URINE BACTERIA CULTURE (11/19/2024 11:54 AM CDT) SPEC DESCRIPTION URINE CLEAN CATCH 11/19/2024 11:55 AM CDT [facility] SPECIAL REQUESTS NO SPECIAL REQUEST 11/19/2024 11:55 AM CDT [facility] CULTURE RESULT POLYMICROBIAL GROWTH CONSISTENT WITH NORMAL GENITAL DERRICK. SUSCEPTIBILITIES NOT ROUTINELY PERFORMED. 11/20/2024 7:49 AM CDT [facility] URINE SPECIMEN OBTAINED BY CLEAN CATCH PROCEDURE / Unknown 11/19/2024 11:54 AM CDT 11/19/2024 11:55 AM CDT us Stewart Brantley MD MICROBIOLOGY - GENERAL ORDERABLES Final Result [facility] [address] [place] [address], documented in this encounter Visit Diagnoses Diagnosis Kidney stone- Primary Calculus of kidney documented in this encounter Care Teams Ship Carpenter Relationship Specialty Start Date End Date None, Provider, PCP - General UNKNOWN PHYSICIAN SPECIALTY 09/25/24 Power Bonds MD Referring Physician OBDEMETRION 08/14/20 documented as of this encounter
--- OUTSIDE RECORDS SUMMARY | 2025-03-10 15:34 | XMS_ITS | Clinical Summary ---
Author Organization [facility] Address [address] [place] [address] Phone Care Team Providers Care Cylinder Batcher Name Role Phone Unavailable Primary Care Provider Unavailabl e Medications No known medications Active Problems No known active problems Social History Tobacco Use Types Packs/Day Years Used Date Smoking Tobacco: Never Smokeless Tobacco: Never Comments Unknown Sex and Gender Information Value Date Recorded Sex Assigned at Not on file Legal Sex Female 7:51 AM CDT Gender Identity Not on file Sexual Orientation Not on file Last Filed Vital Signs Vital Sign Reading Time Taken Comments Blood Pressure 135/81 11/04/2021 12:12 PM CDT Pulse 67 11/04/2021 12:12 PM CDT Temperature - - Respiratory Rate 20 08/26/2021 3:12 PM CDT Oxygen Saturation - - Inhaled Oxygen Concentration - - Weight 124.7 kg (275 lb) 11/04/2021 12:12 PM CDT Height 167.6 cm (5' 6) 11/04/2021 12:12 PM CDT Body Mass Index 44.39 11/04/2021 12:12 PM CDT Plan of Treatment Health Maintenance Due Date Last Done Comments HPV/Cotest (21-29) 2008 HPV VACCINES (1 - 3-dose SCD M series) 2014 CERVICAL CANCER SCREENING 2017 HPV/Cotest (30-65) 2017 PAP SMEAR 2017 INFLUENZA VACCINE (#1) 2025 DTAP/TDAP/TD VACCINES (8 - T d or Tdap) 01/03/2029 01/03/2019, 01/07/2015, 12/19/1992, Additional history exists HEPATITIS B VACCINES Completed 01/26/1998, 08/27/1997, 07/30/1997 Insurance [facility] [employer] PPO [id number]
--- OUTSIDE RECORDS SUMMARY | 2025-03-10 15:34 | XMS_ITS | Clinical Summary ---
Author Organization [facility] System Address [address] [place] [address] Care Team Providers Care Pet Ambassador Name Role Phone Power Bonds MD Unavailable [phone] None, Provider Primary Care Provider Unavaila ble Allergies No known active allergies Medications Multiple Vitamins-Minera ls (MULTIVITAMIN ADULTS OR) Take 1 tablet by mouth daily. Active ketorolac (TORADOL) 10 MG tablet Take 1 tablet (10 mg total) by mouth every 6 (six) hours as needed for Pain. Old rx Active clindamycin (CLEOCIN) 300 MG capsule TAKE ONE CAPSULE 4 TIMES PER DAY 10/16/2024 Active amoxicillin (AMOXIL) 500 MG tablet TAKE FOUR TS PO 1 HOUR B DAPP. 10/16/2024 Active HYDROcodone-jagdish taminophen (NORCO) 5-325 MG tabletIndicatio ns:Acute Pain < 3 Day Supply Take 1 tablet by mouth every 6 (six) hours as needed. Indications: Acute Pain < 3 Day Supply 12 tablet 11/22/2024 Active tamsulosin (FLOMAX) 0.4 MG Cap Take 1 capsule (0.4 mg total) by mouth nightly at bedtime. 15 capsule 11/22/2024 Active hyoscyamine (LEVSIN/SL) 0.[address] 1 tablet (0.125 mg total) under the tongue every 4 (four) hours as needed for Cramping (ureteral stent discomfort). 30 tablet 11/22/2024 Active Active Problems No known active problems Immunizations Immunization Administration Dates Next Due Dtp 12/19/1992,12/16/1988,1987 ,1987,1987 Hepatitis B Pediatric 01/26/1998,08/27/1997,07/07 Hib 01/21/1989 Influenza (Generic) 02/28/2017,03/09/2016,2014,04/15/2014 MMR 12/19/1992,09/03/1988 Opv 12/19/1992,12/16/1988,1987 ,1987,1987 Td 09/04/2002 Tdap (Generic) 01/03/2019,01/07/2015 Family History Medical History Relation Comments Hypertension Father Cancer Mother 2009 - Breast Ca ncer Cancer Paternal Grandmother breast canc er Heart Attack Paternal Uncle Relation Status Comments Daughter Alive Father Alive Maternal Grandfather Maternal Grandmother Mother Alive Paternal Grandfather Paternal Grandmother Paternal Uncle Social History Tobacco Use Types Packs/Day Years [...] Sign Reading Time Taken Comments Blood Pressure 128/86 11/22/2024 11:45 AM CDT Pulse 78 11/22/2024 11:45 AM CDT Temperature 36.1 C (97 F) 11/22/2024 11:45 AM CDT Respiratory Rate 16 11/22/2024 11:4 5 AM CDT Oxygen Saturation 99% 11/22/2024 11: 45 AM CDT Inhaled Oxygen Concentration - - Weight 122.4 kg (269 lb 13.5 oz) 11/22/2024 6:26 AM CDT Height 167.6 cm (5' 5.98) 11/22/2024 6:26 AM CD T Body Mass Index 43.57 11/22/2024 6:26 AM CDT Plan of Treatment Health Maintenance Due Date Last Done Comments Cervical Cancer Screening Pap Smear (Age 30 to 64) Every 3 Years 1987 Hepatitis C 2005 HPV Vaccines (1 - 3-dose SCDM series) 2014 Cervical Cancer Screening Pap with HPV Testing (Age 30 to 64) Every 5 Years 2017 Cervical Cancer Screening with HPV 2017 Annual Physical 08/14/2021 08/14/2020 COVID-19 Vaccine ( season) 2025 Influenza Adult (#1) 2025 02/28/2017, 03/09/2016, 03/26/2015, Additional history exists DTaP, Tdap and Td Vaccines (4 - Td or Tdap) 01/03/2029 01/03/2019, 01/07/2015, 09/04/2002, Additional history exists Hepatitis B Vaccines Completed 01/26/1998, 08/27/1997, 07/30/1997 Meningococcal B Vaccine Aged Out No l onger eligible based on patient's age to complete this topic Meningococcal Vaccine Aged Out No nikko francois eligible based on patient's age to complete this topic Pneumococcal Vaccine: Pediatrics (0 to 5 Years) and At-Risk Patients (6 to 49 Years) Aged Out No longer eligible based on patient's age to complete this topic RSV Immunizations Under 20 Months Aged Out No longer eligible based on patient's age to complete this topic Medical Devices Implanted Type Area Screw Machine Set Up Operator Tool Device Identifier Shelf Expiration Date Model / Serial / Lot Stent Ureteral 6fr 26cm Pigtl Crv Taper Tip Bldr Mrk - [id number] Implanted:Qty : 1 on 11/22/2024 by Stewart Brantley MD at [facility] Stent Left: Ureter [employer] [id number] 09/05/2027 [id number] Insurance [employer] [employer] Care Teams Pet Ambassador Relationship Specialty Start Date End Date None, Provider, PCP - General UNKNOWN PHYSICIAN SPECIALTY 09/25/24 Power Bonds MD Referring Physician [place] 08/14/20
--- OUTSIDE RECORDS SUMMARY | 2025-03-10 15:34 | XMS_ITS | Clinical Summary ---
Author Organization [facility] [address] Address [address] [place] [id number] Care Team Providers Care Pharmacist Hospital Name Role Phone Brigitte Sanz NP Primary Care Provider [phone] Allergies No known active allergies Medications No known medications Active Problems Problem Noted Date Diagnosed Date Varicose veins of both lower extremities with pa in 03/14/2022 Social History Tobacco Use Types Packs/Day Years Used Date Smoking Tobacco: Never Tobacco Cessation:Counseling Given: Not Answered Personal Safety Answer Date Recorded Getting School Help Needed Not on file 08/05 Comments Unknown Sex and Gender Information Value Date Recorded Sex Assigned at Not on file Legal Sex Female 1:42 PM CDT Gender Identity Not on file Sexual Orientation Not on file Obstetrics History Last Filed Vital Signs Vital Sign Reading Time Taken Comments Blood Pressure - - Pulse - - Temperature - - Respiratory Rate - - Oxygen Saturation - - Inhaled Oxygen Concentration - - Weight 124.7 kg (275 lb) 03/14/2022 9:18 AM CDT Height 167.6 cm (5' 5.98) 03/14/2022 9:18 AM CD T Body Mass Index 44.41 03/14/2022 9:18 AM CDT Plan of Treatment Health Maintenance Due Date Last Done Comments Cervical Cancer Screening 1987 Depression Screening 1987 Hepatitis C Screening 1987 Varicella Vaccines (1 of 2 - 13+ 2-dose series) 2000 Regular Well Visit/Exam 18-64 2005 HPV Vaccines (1 - 3-dose SCDM series) 2014 Influenza Vaccine (#1) 2025 1, 02/28/2017, 03/09/2016, Additional history exists DTaP/Tdap/Td Vaccine (8 - Td or Tdap) 01/03/2029 01/03/2019, 01/07/2015, 09/04/2002, Additional history exists Hepatitis B Screening Completed 01/26/1998 , 08/27/1997, 07/30/1997 Pneumococcal vaccine <65 Aged Out No longer eligible based on patient's age to complete this topic Insurance Chip Estimate OPEN ACCESS Care Teams Pharmacist Hospital Relationship Specialty Start Date End Date Brigitte Sanz NP PCP - General Nurse Practitioner 01/21/22
== END 2025-03-10 14:50 | disposition home or self-care (01) ==
LOC: CHSIMG 14:50
PROVIDERS: PCP Nurse Practitioner; Visit Provider Nurse Practitioner
DX: Z12.31 Encounter for screening mammogram for malignant neoplasm of breast (principal)
CPT/HCPCS: 77063; 77067